=== PATIENT | male | born 1990 | race Caucasian/White ===

== ENCOUNTER 2021-05-09 11:05 | Emergency (ER) | payer SELFPAY ==
[~2021-05-09] VITALS: Ht 170.2 cm; Wt 108.9 kg
[2021-05-09] MEDS ORDERED: MORPHINE 4 MG SYG IVP SCH (11:30)
[2021-05-09] MEDS ORDERED: LACTATED RINGERS 1000ML 1,000 ML IV SCH (11:30)
[2021-05-09] MEDS ORDERED: ONDANSETRON 4MG INJ IVP SCH (11:30)
[2021-05-09] MEDS ORDERED: KETOROLAC 30MG VIAL (30MG/ML) IVP SCH (11:30)
[2021-05-09 11:34] LABS: APPEARANCE,URINE TURBID (CLEAR); BILIRUBIN,URINE NEGATIVE (NEGATIVE); COLOR,URINE RED (YELLOW); GLUCOSE, URINE (UA) 250 mg/dL (NEGATIVE); KETONES,URINE 15 mg/dL (NEGATIVE); LEUKOCYTE ESTERASE ,URINE MODERATE (NEGATIVE); NITRATE,URINE POSITIVE (NEGATIVE); OCCULT BLOOD,URINE LARGE (NEGATIVE); PH,URINE 6.5 (5.0-8.0); PROTEIN,URINE >=300 mg/dL (NEGATIVE)
[2021-05-09] MEDS ORDERED: KETOROLAC 30MG VIAL (30MG/ML) ONE (11:40)
[2021-05-09] MEDS ORDERED: ONDANSETRON 4MG INJ ONE (11:40)
[2021-05-09] MEDS ORDERED: MORPHINE 4 MG SYG ONE (11:41)
[2021-05-09] MEDS ORDERED: LACTATED RINGERS 1000ML 1,000 ML IV ONE (11:41)
[2021-05-09 11:53] LABS: BACTERIA,URINE Many /HPF (None Seen); RBC,URINE TNTC /HPF (0-1)
[2021-05-09 11:54] LABS: SQUAMOUS EPITHELIAL CELL,UR 0-2 /HPF (0-2)
[2021-05-09] MEDS ORDERED: CEFTRIAXONE 1G VIAL IVP SCH (12:30)
[2021-05-09] MEDS ORDERED: 0.9% NACL 500ML IV.SOLN 500 ML IV ONE ×2 (12:36→12:42)
[2021-05-09 12:56] LABS: BASOPHILS % (AUTO) 0.4 % (0.0-5.0); EOSINOPHILS % (AUTO) 0.2 % (0.0-8.0); HEMATOCRIT 45.1 % (42-54); LYMPHOCYTES % (AUTO) 10.5 % (21.0-51.0); MEAN CORPUSCULAR HEMOGLOBIN 31.1 pg (27.0-33.0); MEAN CORPUSCULAR HGB CONC 33.7 g/dL (32.0-36.0); MEAN CORPUSCULAR VOLUME 92.2 fL (79-99); MONOCYTES % (AUTO) 6.1 % (3.0-13.0); NEUTROPHILS % (AUTO) 82.3 % (40.0-77.0); PLATELET COUNT (AUTO) 275 K/uL (130-400); RED BLOOD CELL COUNT(AUTO) 4.89 MIL/uL (4.50-6.20); RED CELL DISTRIBUTION WIDTH 12.6 % (11.0-15.5); WHITE BLOOD COUNT (AUTO) 12.4 K/uL (4.8-10.8)
[2021-05-09 13:12] LABS: CREATININE 1.1 mg/dL (0.5-1.5); POTASSIUM 3.5 mmol/L (3.5-5.1)
[2021-05-09 13:16] LABS: ALBUMIN 4.1 g/dL (3.5-5.0); BILIRUBIN,TOTAL 0.9 mg/dL (0.2-1.0); TOTAL PROTEIN, SERUM 7.7 g/dL (6.0-8.3)
[2021-05-09] MEDS ORDERED: ACET1TAB25 PO (13:17)
[2021-05-09] MEDS ORDERED: CEPH500B PO (13:17)
[2021-05-09] MEDS ORDERED: IBUP-2070 PO (13:17)
[2021-05-09] MEDS ORDERED: HYDROCODONE/ACETAMINOPHEN 5/325 MG TAB ONE (13:34)
[2021-05-09 13:38] VITALS: BP 136/95
[2021-05-09] MEDS ORDERED: MORPHINE 2 MG SYG IM ONE (14:00)
[2021-05-09] MEDS ORDERED: TAMSULOSIN HCL 0.4 MG CAP.ER.24H PO SCH (14:00)
[2021-05-09] MEDS ORDERED: HYDROCODONE/ACETAMINOPHEN 5/325 MG TAB PO ONE (14:00)
== END 2021-05-09 13:53 | disposition home or self-care (01) ==
LOC: EDH 11:05
DX: N23 Unspecified renal colic (principal)
CPT/HCPCS: 36415; 74176; 80053; 81001; 85025; 87088; 96361; 96374; 96375; 99284; J0696; J1885; J2270; J2405; J7040 ×2; J7120

== ENCOUNTER 2021-05-15 23:21 | Emergency (ER) | payer SELFPAY ==
[~2021-05-15] VITALS: Ht 170.2 cm; Wt 104.3 kg
[~2021-05-15 23:21] MED LIST: ACET1TAB25 PO; CEPH500B PO; IBUP-2070 PO
[2021-05-15 23:22] VITALS: BP 130/84
== END 2021-05-16 03:03 | disposition left against medical advice (07) ==
LOC: EDH 23:21
DX: R10.9 Unspecified abdominal pain (principal); Z53.21 Procedure and treatment not carried out due to patient leaving prior to being seen by health care provider